=== PATIENT | male | born 1940 | race Caucasian/White ===

== ENCOUNTER 2021-12-21 12:50 | Emergency (ER) | payer MEDICARE, OTHER ==
[~2021-12-21] VITALS: Ht 175.3 cm; Wt 82.9 kg
--- NOTE | 2021-12-21 13:26 | PHYS DOC ---
General Adult EDM: Chief Complaint: WEAKNESS/GENERALIZED HPI: HPI: 81-year-old male presents with generalized weakness and decreased ability to eat and drink. The patient just moved here to have a biopsy and specialty consultation at . He has some sort of intra-abdominal lesion. He presents today because he is unable to eat or drink more than a couple ounces at a time without feeling very full. He denies nausea or vomiting. He does not feel like anything gets stuck when he swallows. No history of dysphagia. Denies fever or chills. Last bowel movement was today. Review of Systems: Review of Systems: Constitutional: Denies fever or chills Eyes: Denies change in visual acuity HENT: Denies nasal congestion or sore throat Respiratory: Denies cough or shortness of breath Cardiovascular: Denies chest pain or edema GI: Fullness with swallowing. Denies abdominal pain, nausea, vomiting, bloody s tools or diarrhea : Denies dysuria Musculoskeletal: Denies back pain or joint pain Integument: Denies rash Neurologic: Denies headache, focal weakness or sensory changes Endocrine: Denies polyuria or polydipsia Lymphatic: Denies swollen glands Psychiatric: Denies depression or anxiety Current Medications: Current Meds: Current Medications Medications (Trade) Dose Ordered Sig/Roselyn Start Time Stop Time Status Last Admin Dose Admin Sodium Chloride 1,000 ml @ 1,000 mls/hr 1X ONCE 12/21/21 13:30 12/21/21 14:29 UNV Physical Exam: PE: Constitutional: Well developed, well nourished, no acute distress, non-toxic appearance. [] HENT: Normocephalic, atraumatic, bilateral external ears normal, oropharynx moist, no oral exudates, nose normal. [] Eyes: PERRLA, EOMI, conjunctiva normal, no discharge. [] Neck: Normal range of motion, no tenderness, supple, no stridor. [] Cardiovascular: Heart rate regular rhythm, no murmur [] Lungs & Thorax: Bilateral breath sounds clear to auscultation [] Abdomen: Bowel sounds normal, soft, no tenderness, no masses, no pulsatile masses. [] Skin: Warm, dry, no erythema, no rash. [] Back: No tenderness, no CVA tenderness. [] Extremities: No tenderness, no cyanosis, no clubbing, ROM intact, no edema. [] Neurologic: Alert and oriented X 3, normal motor function, normal sensory function, no focal deficits noted. [] Psychologic: Affect normal, judgement normal, mood normal. [] EKG: EKG: [] Radiology/Procedures: Radiology/Procedures: [] Impressions: EXAMINATION: CT abdomen and pelvis without IV contrast. INDICATION:81 years, Male, weakness, abdominal pain, weight loss. TECHNIQUE: Axial CT images of the abdomen and pelvis were obtained. Coronal and sagittal reformatted performed. COMPARISON: None. Exposure: One or more of the following individualized dose reduction techniques were utilized for this examination: 1. Automated exposure control 2. Adjustment of the mA and/or kV according to patient size 3. Use of iterative reconstruction technique. FINDINGS: LOWER CHEST: Multiple solid nodules in bibasilar lungs, the largest measures 0.6 cm. ABDOMEN/PELVIS: Within limitation of noncontrast exam, Dilated main pancreatic duct within the body and tail pancreatic parenchymal atrophy. There is an ill-defined soft tissue fullness in the region of the pancreatic neck/proximal body (series 2 image 32). Pancreatic head is grossly unremarkable. No intra or extrahepatic biliary ductal dilation. Diffuse central mesenteric fat stranding with coarse calcifications and multiple enlarged mesenteric lymph nodes measuring up to 1.1 cm in short axis. 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 No suspicious focal hepatic lesion, within the limitation of the exam. Gallbladder is mildly distended with multiple partially calcified cholelithiasis. No CT evidence of acute cholecystitis. Spleen is unremarkable with multiple calcified granulomas. Nodular thickening of the adrenal glands without discrete nodule. No hydronephrosis or nephrolithiasis. Vascular calci fications both kidneys. Simple appearing bilateral renal cortical cysts measuring up to 4.4 cm in the right. No bowel obstruction. Few colonic diverticulosis. Moderate aortoiliac atherosclerotic calcifications without dilatation. No pneumoperitoneum or as cites. Trace amount of pelvic free fluid. No pelvic lymphadenopathy. Underdistended urinary bladder which limits evaluation. Unremarkable prostate. MUSCULOSKELETAL STRUCTURES: Grade 1 anterolisthesis of L4 over L5. Minimal retrolisthesis of L2 over L3 and L3 over L4. Multilevel degenerative changes in the spine. No acute osseous process. Small fat-containing left inguinal hernia. IMPRESSION: Within the limitation of noncontrast exam, 1. Dilated main pancreatic duct within the body and tail pancreatic parenchymal atrophy. Ill-defined soft tissue fullness in the region of the pancreatic neck/proximal body. Large amount of peripancreatic fat stranding. Overall findings concerning for pancreatic neoplasm. Superimposed acute pancreatitis cannot be excluded. Consider correlation with lipase level and CA-19-9. Recommend further evaluation with MRI/MRCP abdomen without and with IV contrast. 2. Diffuse central mesenteric fat stranding with coarse calcifications and multiple mildly enlarged mesenteric lymph nodes. Findings are nonspecific, differential consideration includes sclerosing mesenteritis versus treated mesenteric lymphoma. Consider comparison with prior images, if available. 3. 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 4. Multiple partially calcified cholelithiasis. 5. Multiple solid nodules in bibasilar lungs, indeterminate for metastasis. Recommend further evaluation with CT chest. Electronically signed by: Choco Breaux MD (12/21/2021 2:09 PM) [id number] DICTATED AND SIGNED BY: CHOCO BREAUX MD DATE: 12/21/21 [id number] CC: KALEE ROMERO DO; PCP,NO ~ Heart Score: C/O Chest Pain: N/A Risk Factors: Risk Factors: DM, Current or recent (<one month) smoker, HTN, HLP, family history of CAD, obesity. Risk Scores: Score 0 - 3: 2.5% MACE over next 6 weeks - Discharge Home Score 4 - 6: 20.3% MACE over next 6 weeks - Admit for Clinical Observation Score 7 - 10: 72.7% MACE over next 6 weeks - Early Invasive Strategies Course & Med Decision Making: Course & Med Decision Making Pertinent Labs and Imaging studies reviewed. (See chart for details) The patient's labs are essentially unremarkable. His EKG is negative for acute findings. Troponin is negative. His CT of the abdomen and pelvis shows ful lness and stranding in the area of the pancreatic neck. There is concern for neoplasm. See official read for more details. The other nonspecific findings on CT. See official read for details. These are all known issues that the patient came to [place] to have evaluated at . None of these appear to be acute in nature. His stomach does not appear to be distended. It is likely that the patient's symptoms are related to his greater disease process. There is nothing acutely to do. I have encouraged the patient to eat and drink in smaller volumes and more frequently. He is stable for discharge at this time. [] Dragon Disclaimer: [place] Disclaimer: This electronic medical record was generated, in whole or in part, using a voice recognition dictation system. Departure Departure: Impression: Primary Impression: Pancreatic mass Additional Impressions: Generalized weakness Decreased appetite Disposition: 01 HOME / SELF CARE / HOMELESS Condition: STABLE Referrals: PCP,NO (PCP) Patient Instructions: Weakness, [id number] KALEE ROMERO DO December 21, 2021 13:26
[2021-12-21 14:09] LABS: BASO % 1 % (0-3); EOS # 0.1 x10^3/uL (0.0-0.7); EOS % 1 % (0-3); HEMATOCRIT 46.7 % (39.0-53.0); HEMOGLOBIN 15.4 g/dL (13.0-17.5); LYMPH # 0.9 x10^3/uL (1.0-4.8); LYMPH % 16 % (24-48); MEAN CORPUSCULAR HEMOGLOBIN 33 pg (25-35); MEAN CORPUSCULAR HGB CONC 33 g/dL (31-37); MEAN CORPUSCULAR VOLUME 100 fL (79-100); MONO # 0.7 x10^3/uL (0.0-1.1); MONO % 13 % (0-9); NEUT # 3.9 x10^3uL (1.8-7.7); NEUT % 70 % (31-73); PLATELET COUNT 97 x10^3/uL (140-400); RED BLOOD COUNT 4.67 x10^6/uL (4.30-5.70); RED CELL DISTRIBUTION WIDTH 13.8 % (11.5-14.5); WHITE BLOOD COUNT 5.6 x10^3/uL (4.0-11.0)
--- NOTE | 2021-12-21 14:11 | RAD ---
EXAMINATION: CT abdomen and pelvis without IV contrast. INDICATION:81 years, Male, weakness, abdominal pain, weight loss. TECHNIQUE: Axial CT images of the abdomen and pelvis were obtained. Coronal and sagittal reformatted performed. COMPARISON: None. Exposure: One or more of the following individualized dose reduction techniques were utilized for thi s examination: 1. Automated exposure control 2. Adjustment of the mA and/or kV according to patient size 3. Use of iterative reconstruction technique. FINDINGS: LOWER CHEST: Multiple solid nodules in bibasilar lungs, the largest measures 0.6 cm. ABDOMEN/PELVIS: Within limitation of noncontrast exam, Dilated main pancreatic duct within the body and tail pancreatic parenchymal atrophy. There is an ill -defined soft tissue fullness in the region of the pancreatic neck/proximal body (series 2 image 32). Pancreatic head is grossly unremarkable. No intra or extrahepatic biliary ductal dilation. Diffuse c entral mesenteric fat stranding with coarse calcifications and multiple enlarged mesenteric lymph nod es measuring up to 1.1 cm in short axis. There is a large amount of perigastric varices, likely secon noemi to chronically occluded splenic vein. No suspicious focal hepatic lesion, within the limitation of the exam. Gallbladder is mildly distende d with multiple partially calcified cholelithiasis. No CT evidence of acute cholecystitis. Spleen is unremarkable with multiple calcified granulomas. Nodular thickening of the adrenal glands without dis crete nodule. No hydronephrosis or nephrolithiasis. Vascular calcifications both kidneys. Simple appe aring bilateral renal cortical cysts measuring up to 4.4 cm in the right. No bowel obstruction. Few colonic diverticulosis. Moderate aortoiliac atherosclerotic calcifications without dilatation. No pneumoperitoneum or ascites. Trace amount of pelvic free fluid. No pelvic lymp hadenopathy. Underdistended urinary bladder which limits evaluation. Unremarkable prostate. MUSCULOSKELETAL STRUCTURES: Grade 1 anterolisthesis of L4 over L5. Minimal retrolisthesis of L2 over L3 and L3 over L4. Multileve l degenerative changes in the spine. No acute osseous process. Small fat-containing left inguinal her imelda. IMPRESSION: Within the limitation of noncontrast exam, 1. Dilated main pancreatic duct within the body and tail pancreatic parenchymal atrophy. Ill-defined soft tissue fullness in the region of the pancreatic neck/proximal body. Large amount of peripancreat ic fat stranding. Overall findings concerning for pancreatic neoplasm. Superimposed acute pancreatiti s cannot be excluded. Consider correlation with lipase level and CA-19-9. Recommend further evaluatio n with MRI/MRCP abdomen without and with IV contrast. 2. Diffuse central mesenteric fat stranding with coarse calcifications and multiple mildly enlarged m esenteric lymph nodes. Findings are nonspecific, differential consideration includes sclerosing mesen teritis versus treated mesenteric lymphoma. Consider comparison with prior images, if available. 3. 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 4. Multiple partially calcified cholelithiasis. 5. Multiple solid nodules in bibasilar lungs, indeterminate for metastasis. Recommend further evaluat ion with CT chest. Electronically signed by: Román Breaux MD (12/21/2021 2:09 PM) [id number]
[2021-12-21 14:16] LABS: CALCIUM 9.1 mg/dL (8.5-10.1); GFR 72.1; POTASSIUM 4.1 mmol/L (3.5-5.1)
[2021-12-21 14:22] LABS: ALBUMIN 3.2 g/dL (3.4-5.0); ALBUMIN/GLOBULIN RATIO 1.1 (1.0-1.7); TOTAL BILIRUBIN 1.3 mg/dL (0.2-1.0)
[2021-12-21] MEDS: IV NORMAL SALINE 1,000ML 1,000 ML IV ONE (14:23)
[2021-12-21 15:10] VITALS: BP 122/76
== END 2021-12-21 15:10 | disposition home or self-care (01) ==
LOC: ER 12:50
DX: K86.89 Other specified diseases of pancreas (principal); R53.1 Weakness; R63.0 Anorexia
CPT/HCPCS: 36415; 71045; 74176; 80053; 84484; 85025; 93005; 96361; 96374; 99285; J3010; J7030